=== PATIENT | female | born 1985 | race Two or more races ===

== ENCOUNTER 2019-04-06 13:37 | Emergency (ER) | payer MEDICAID, OTHER ==
[~2019-04-06] VITALS: Ht 160 cm; Wt 53.5 kg
[2019-04-06 13:47] VITALS: BP 127/78
[2019-04-06] MEDS ORDERED: IBUPROFEN 400 MG TABLET ONE (13:57)
[2019-04-06] MEDS ORDERED: IBUPROFEN 400 MG TABLET PO ONE (14:00)
== END 2019-04-06 14:54 | disposition home or self-care (01) ==
LOC: ER 13:37
DX: S90.412A Abrasion, left great toe, initial encounter (principal); M79.662 Pain in left lower leg; Z98.890 Other specified postprocedural states; W10.0XXA Fall (on)(from) escalator, initial encounter; Y93.01 Activity, walking, marching and hiking; Y92.89 Other specified places as the place of occurrence of the external cause; Y99.8 Other external cause status
CPT/HCPCS: 73590; 73630; 99283; A6402